=== PATIENT | male | born 1960 | race Caucasian/White ===

== ENCOUNTER 2017-04-08 13:13 | Inpatient (IN) | payer OTHER ==
[2017-04-08 14:22] VITALS: BMI 27.7
--- NOTE | 2017-04-08 15:28 | HP ---
Admission ROS [facility] Chief Complaint: I am here for rehab. Allergies/Adverse Reactions: Allergies Allergy/AdvReac Type Severity Reaction Status Date / Time No Known Allergies Allergy Verified 04/08/17 14:27 History of Present Illness: pt is a 56yr old male with a history of cocaine dependence seeking detox for treatment. pt has a h/o dvt to B/L leg and left pulmonary clot. pt is currently on coumadin 10mg qhs last INR as per pt is 2.2 Exam Limitations: No Limitations - Ebola screening Have you traveled outside of the country in the last 21 days: No (N) Have you had contact with anyone from an Ebola affected area: No Have you been sick,other than usual withdrawal symptoms: No Do you have a fever: No - Review of Systems Constitutional: No Symptoms Reported EENT: reports: No Symptoms Reported Respiratory: reports: No Symptoms reported Cardiac: reports: No Symptoms Reported GI: reports: No Symptoms Reported : reports: No Symptoms Reported Musculoskeletal: reports: No Symptoms Reported Integumentary: reports: No Symptoms Reported Neuro: reports: No Symptoms reported Endocrine: reports: No Symptoms Reported Hematology: reports: No Symptoms Reported Psychiatric: reports: Judgement Intact, Mood/Affect Appropiate, Orientated x3, Agitated, Anxious Other Systems: Reviewed and Negative Patient History - Patient Medical History Hx Anemia: No Hx Asthma: Yes Hx Chronic Obstructive Pulmonary Disease (COPD): No Hx Cancer: No Hx Cardiac Disorders: No Hx Congestive Heart Failure: No Hx Hypertension: No Hx Hypercholesterolemia: No Hx Pacemaker: No HX Cerebrovascular Accident: No Hx Seizures: No Hx Dementia: No Hx Diabetes: No Hx Gastrointestinal Disorders: No Hx Liver Disease: No Hx Genitourinary Disorders: No Hx Sexually Transmitted Disorders: No Hx Renal Disease (ESRD): No Hx Thyroid Disease: No Hx Human Immunodeficiency Virus (HIV): No (negative) Hx Hepatitis C: No (negative) Hx Depression: Yes Hx Suicide Attempt: No (denies) Hx Bipolar Disorder: Yes Hx Schizophrenia: No - Patient Surgical History Past Surgical History: No Hx Neurologic Surgery: No Hx Cataract Extraction: No Hx Cardiac Surgery: No Hx Lung Surgery: No Hx Breast Surgery: No Hx Breast Biopsy: No Hx Abdominal Surgery: No Hx Appendectomy: No Hx Cholecystectomy: No Hx Genitourinary Surgery: No Hx Section: No Hx Orthopedic Surgery: No Anesthesia Reaction: No - PPD History Previous Implant?: Yes Documented Results: Negative w/o proof Implanted On Prior [facility] Admission?: No PPD to be Administered?: Yes - Reproductive History Patient is a Female of Child Bearing Age (11 -55 yrs old): No - Smoking Cessation Smoking history: Current every day smoker Have you smoked in the past 12 months: Yes Aproximately how many cigarettes per day: 5 Hx Chewing Tobacco Use: No Initiated information on smoking cessation: Yes 'Breaking Loose' booklet given: 04/08/17 - Substance & Tx. History Hx Alcohol Use: No Hx Substance Use: Yes Substance Use Type: Cocaine Hx Substance Use Treatment: No - Substances Abused Cocaine Route: Inhalation Frequency: Daily Amount used: $200 Age of first use: 17 Date of Last Use: 04/04/17 Family Disease History - Family Disease History Family History: Denies Admission Physical Exam S - Vital Signs Vital Signs: Vital Signs - 24 hr 04/08/17 14:16 Temperature 96.1 F L Pulse Rate 82 Respiratory 16 Rate Blood Pressure 127/91 - Physical General Appearance: Yes: Appropriately Dressed, Mild Distress HEENTM: Yes: Hearing grossly Normal, Normal Voice Respiratory: Yes: Lungs Clear, Normal Breath Sounds, No Respiratory Distress Neck: Yes: No masses,lesions,Nodules Breast: Yes: Within Normal Limits Cardiology: Yes: Regular Rhythm, Regular Rate, S1, S2 Abdominal: Yes: Normal Bowel Sounds, Non Tender, Soft Genitourinary: Yes: Within Normal Limits Back: Yes: Normal Inspection Musculoskeletal: Yes: full range of Motion Extremities: Yes: Other (chronic right lower leg swelling) Neurological: Yes: Fully Oriented, Alert, Normal Response Integumentary: Yes: Normal Color Lymphatic: Yes: Within Normal Limits - Diagnostic (1) Cocaine dependence Current Visit: Yes Status: Chronic Qualifiers: Substance use status: uncomplicated Qualified Code(s): F14.20 - Cocaine dependence, uncomplicated (2) Nicotine dependence Current Visit: Yes Status: Chronic Qualifiers: Nicotine product type: cigarettes Substance use status: uncomplicated Qualified Code(s): F17.210 - Nicotine dependence, cigarettes, uncomplicated (3) DVT (deep venous thrombosis) Current Visit: Yes Status: Acute Qualifiers: DVT location: lower extremity Chronicity: chronic Laterality: bilateral (4) Asthma Current Visit: Yes Status: Chronic Qualifiers: Asthma severity: mild Asthma complication type: uncomplicated (5) H/O pulmonary thrombosis Current Visit: No Status: Chronic Cleared for Admission S - Detox or Rehab S Level of Care: Medically Managed S Breath Alcohol Content Breath Alcohol Content: 0 Urine Drug Screen - Results Drug Screen Negative: No Urine Drug Screen Results: [facility]patient Re[facility] Admission - Initial Determination Are CD services needed?: Yes Not in need of hospitalization: Yes - Rehab Admission Criteria Comorbidities: Yes Patient is meeting Inpatient Rehab admission criteria:: Yes
[2017-04-08] MEDS ORDERED: NICOTINE POLACRILEX 4 MG GUM BUC PRN (15:30)
[2017-04-08] MEDS ORDERED: MAGNESIUM CITRATE 300 ML BOTTLE PO PRN (15:30)
[2017-04-08] MEDS ORDERED: MAG HYDROX/AL HYDROX/SIMETH 30 ML UNIT-DOSE CUP PO PRN (15:30)
[2017-04-08] MEDS ORDERED: LOPERAMIDE HCL 2 MG CAPSULE PO PRN (15:30)
[2017-04-08] MEDS ORDERED: MAGNESIUM HYDROX 2400MG/30ML ORAL SUSPENSION 30 ML CUP PO PRN (15:30)
[2017-04-08] MEDS ORDERED: hydrOXYzine PAMOATE 50 MG CAPSULE (FP) PO PRN (15:30)
[2017-04-08] MEDS ORDERED: MENTHOL/PHENOL 1 EACH UD MM PRN (15:30)
[2017-04-08] MEDS ORDERED: P-EPHED 60MG/TRIPROLIDI 2.5MG TABLET PO PRN (15:30)
[2017-04-08] MEDS ORDERED: guaiFENesin/D-METHORPHAN HB 10 ML UNIT-DOSE CUPS PO PRN (15:30)
[2017-04-08] MEDS ORDERED: ALBUTEROL SO4 18 GM HFA INHALER IH PRN (15:31)
[2017-04-08 16:42] LABS: ALBUMIN 3.9 g/dl (3.4-5.0); ALK PHOS 75 U/L (45-117); ANION GAP 6 (8-16); BILIRUBIN,TOTAL 0.3 mg/dL (0.2-1.0); BLOOD UREA NITROGEN 14 mg/dL (7-18); CALCIUM 8.5 mg/dL (8.5-10.1); CHLORIDE 107 mmol/L (98-107); CO2 27 mmol/L (21-32); CREATININE 1.2 mg/dL (0.7-1.3); GLUCOSE,RANDOM 81 mg/dL (74-106); POTASSIUM 4.1 mmol/L (3.5-5.1); SGOT/AST 9 U/L (15-37); SGPT/ALT 15 U/L (12-78); SODIUM 140 mmol/L (136-145); TOT PROT 7.4 g/dl (6.4-8.2)
[2017-04-08 16:45] LABS: HEMATOCRIT 40.5 % (35.4-49); MCH 28.5 pg (25.7-33.7); MCHC 32.2 g/dl (32.0-35.9); MEAN CELL VOLUME 88.7 fl (80-96); MEAN PLT VOLUME 8.9 fl (7.5-11.1); PLATELET COUNT 252 K/MM3 (134-434); RBC 4.57 M/mm3 (4.00-5.60); RDW 16.5 % (11.9-15.9); WHITE BLOOD COUNT 8.7 K/mm3 (4.0-10.0)
[2017-04-08 17:10] LABS: INR 1.81 (0.82-1.09); PROTHROMBIN TIME (PATIENT) 20.4 SEC (9.98-11.88)
[2017-04-08] MEDS ORDERED: WARFARIN NA 10 MG TABLET (FP) PO SCH (18:00)
[2017-04-08] MEDS: WARFARIN NA 5 MG TABLET (UD) PO SCH (19:08)
[2017-04-08] MEDS: BUDESONIDE/FORMETEROL FUMARATE 160/4.5 mcg INHALER IH SCH (21:41)
[2017-04-08] MEDS ORDERED: MIRTAZAPINE 15 MG TABLET (FP) PO SCH (22:00)
[2017-04-08] MEDS: THIAMINE HCL 100 MG TABLET (FP) PO SCH (22:11)
[2017-04-08] MEDS: OLANZapine 10 MG TABLET PO SCH (22:11)
[2017-04-08 23:33] LABS: URINE APPEARANCE CLEAR; URINE BILIRUBIN NEGATIVE (NEGATIVE); URINE BLOOD NEGATIVE (NEGATIVE); URINE COLOR LTYELLOW; URINE GLUCOSE (UA) NEGATIVE (NEGATIVE); URINE KETONE NEGATIVE (NEGATIVE); URINE LEUK ESTERASE NEGATIVE (NEGATIVE); URINE NITRITE NEGATIVE (NEGATIVE); URINE PROTEIN NEGATIVE (NEGATIVE); URINE UROBILINOGEN NEGATIVE mg/dL (0.2-1.0)
--- NOTE | 2017-04-09 07:09 | HP ---
Psychiatrist Admission - Data Date of interview: 04/09/17 Admission source: [place] Identifying data: This is the first [facility] admission for this 56 years old single male, unemployed on SSI, domiciled Medical History: Significant for bronchial asthma and history of dvt both legs and pulmonary emboli, Smokes 5 cigarettes daily Psychiatric History: Reports being diagnosed with Bipolar/Depression as a child and has had 3-4 previous psychiatric admissions all in [facility]. Reports seeing a psychiatrist at a clinic in [place], [place] and he is prescribed Gabapentin 400 mg po daily, Remeron 45mg po HS and Zyprexa 20 mg po HS. Claims that he is only compliant with Zyprexa and stopped taking the others. Requests that they be discontinued since he does not want to take them and has been refusing to take them. Denies history of suicidal attempt. At present, reports feeling and sleeping well Physical/Sexual Abuse/Trauma History: Denies histoy of verbal, physical or sexual abuse as well as DV relationship Additional Comment: Reports history of multiple arrests including 5 felony convictions. Reports being on parole for life Vital Signs: Vital Signs - 24 hr 04/08/17 04/09/17 04/09/17 14:16 00:30 03:30 Temperature 96.1 F L Pulse Rate 82 Respiratory 16 18 20 Rate Blood Pressure 127/91 04/09/17 06:51 Temperature 98.3 F Pulse Rate 69 Respiratory 18 Rate Blood Pressure 110/66 Allergies/Adverse Reactions: Allergies Allergy/AdvReac Type Severity Reaction Status Date / Time No Known Allergies Allergy Verified 04/08/17 14:27 Date of last physical exam: 04/08/17 Concur with the findings of this exam: Yes - Substance Abuse/Tx History Hx Alcohol Use: No Hx Substance Use: Yes Substance Use Type: Cocaine (Started using cocaine at age 17, consumes $$200 worth daily. Last used on 04/04/17) Hx Substance Use Treatment: No Mental Status Exam - Mental Status Exam Alert and Oriented to: Time, Place, Person Cognitive Function: Fair Patient Appearance: Well Groomed Mood: Hopeful, Euthymic Patient Behavior: Cooperative Speech Pattern: Clear Voice Loudness: Normal Thought Process: Intact, Goal Oriented Thought Disorder: Not Present Hallucinations: Denies Suicidal Ideation: Denies Homicidal Ideation: Denies Insight/Judgement: Fair Sleep: Well Muscle strength/Tone: Normal Gait/Station: Normal Psychiatric Findings - Problem List ([place] 1, 2,3) (1) Cocaine dependence Current Visit: Yes Status: Chronic Qualifiers: Substance use status: uncomplicated Qualified Code(s): F14.20 - Cocaine dependence, uncomplicated (2) Nicotine dependence Current Visit: Yes Status: Chronic Qualifiers: Nicotine product type: cigarettes Substance use status: uncomplicated Qualified Code(s): F17.210 - Nicotine dependence, cigarettes, uncomplicated (3) Bipolar II disorder Current Visit: Yes Status: Acute (4) Asthma Current Visit: Yes Status: Chronic Qualifiers: Asthma severity: mild Asthma complication type: uncomplicated (5) DVT (deep venous thrombosis) Current Visit: Yes Status: Acute Qualifiers: DVT location: lower extremity Chronicity: chronic Laterality: bilateral (6) H/O pulmonary thrombosis Current Visit: No Status: Chronic - Initial Treatment Plan Initial Treatment Plan: 1) Continue Olanzapine 20 mg po HS as ordered by Dr Bolton. 2) Discontinue Gabapenti and Remeron. 3) Monitor progress
[2017-04-09] MEDS ORDERED: GABAPENTIN 400 MG CAPSULE (FP) PO SCH (10:00)
[2017-04-09] MEDS: NICOTINE 21 MG/24 HOURS TOPICAL PATCH TD SCH (10:47)
[2017-04-09] MEDS: PRENATAL VITAMINS W/ FOLIC ACID TABLET (FP) PO SCH (10:47)
[2017-04-09] MEDS: BUDESONIDE/FORMETEROL FUMARATE 160/4.5 mcg INHALER IH SCH ×2 (10:51→21:51)
--- NOTE | 2017-04-09 13:59 | EKG ---
Test Reason : Blood Pressure : / mmHG Vent. Rate : 071 BPM Atrial Rate : 071 BPM P-R Int : 156 ms QRS Dur : 086 ms QT Int : 396 ms P-R-T Axes : 061 -24 055 degrees QTc Int : 430 ms NORMAL SINUS RHYTHM POSSIBLE LEFT ATRIAL ENLARGEMENT NO PREVIOUS ECGS AVAILABLE Confirmed by NINOSKA COULTER MD ([id number]) on 04/09/2017 1:59:08 PM Referred By: Confirmed By:NINOSKA COULTER MD
[2017-04-09] MEDS: WARFARIN NA 5 MG TABLET (UD) PO SCH (17:03)
[2017-04-09] MEDS: THIAMINE HCL 100 MG TABLET (FP) PO SCH (21:52)
[2017-04-09] MEDS: OLANZapine 10 MG TABLET PO SCH (21:52)
[2017-04-09] MEDS ORDERED: PT OWN MED DRAWER 7, Y5N ONE (22:14)
[2017-04-10] MEDS: NICOTINE 21 MG/24 HOURS TOPICAL PATCH TD SCH (10:46)
[2017-04-10] MEDS: PRENATAL VITAMINS W/ FOLIC ACID TABLET (FP) PO SCH (10:46)
[2017-04-10] MEDS: BUDESONIDE/FORMETEROL FUMARATE 160/4.5 mcg INHALER IH SCH ×2 (10:46→21:09)
[2017-04-10 10:57] LABS: INR 2.18 (0.82-1.09); PROTHROMBIN TIME (PATIENT) 24.6 SEC (9.98-11.88)
[2017-04-10] MEDS: WARFARIN NA 5 MG TABLET (UD) PO SCH (17:13)
[2017-04-10] MEDS: THIAMINE HCL 100 MG TABLET (FP) PO SCH (21:09)
[2017-04-10] MEDS: OLANZapine 10 MG TABLET PO SCH (21:09)
[2017-04-11] MEDS: PRENATAL VITAMINS W/ FOLIC ACID TABLET (FP) PO SCH (10:11)
[2017-04-11] MEDS: NICOTINE 21 MG/24 HOURS TOPICAL PATCH TD SCH (10:11)
[2017-04-11] MEDS: BUDESONIDE/FORMETEROL FUMARATE 160/4.5 mcg INHALER IH SCH ×2 (10:13→21:52)
[2017-04-11] MEDS: WARFARIN NA 5 MG TABLET (UD) PO SCH (17:09)
[2017-04-11] MEDS: OLANZapine 10 MG TABLET PO SCH (21:52)
[2017-04-11] MEDS: THIAMINE HCL 100 MG TABLET (FP) PO SCH (21:52)
[2017-04-12] MEDS: BUDESONIDE/FORMETEROL FUMARATE 160/4.5 mcg INHALER IH SCH ×2 (11:06→22:25)
[2017-04-12] MEDS: PRENATAL VITAMINS W/ FOLIC ACID TABLET (FP) PO SCH (11:06)
[2017-04-12] MEDS: NICOTINE 21 MG/24 HOURS TOPICAL PATCH TD SCH (11:06)
[2017-04-12] MEDS: WARFARIN NA 5 MG TABLET (UD) PO SCH (18:17)
[2017-04-12] MEDS: OLANZapine 10 MG TABLET PO SCH (21:34)
[2017-04-12] MEDS: THIAMINE HCL 100 MG TABLET (FP) PO SCH (21:34)
[2017-04-13] MEDS: NICOTINE 21 MG/24 HOURS TOPICAL PATCH TD SCH (10:46)
[2017-04-13] MEDS: PRENATAL VITAMINS W/ FOLIC ACID TABLET (FP) PO SCH (10:46)
[2017-04-13] MEDS: BUDESONIDE/FORMETEROL FUMARATE 160/4.5 mcg INHALER IH SCH ×2 (10:46→21:13)
[2017-04-13] MEDS: THIAMINE HCL 100 MG TABLET (FP) PO SCH (21:12)
[2017-04-13] MEDS: OLANZapine 10 MG TABLET PO SCH (21:12)
[2017-04-14] MEDS: NICOTINE 21 MG/24 HOURS TOPICAL PATCH TD SCH (10:40)
[2017-04-14] MEDS: BUDESONIDE/FORMETEROL FUMARATE 160/4.5 mcg INHALER IH SCH ×2 (10:41→21:11)
[2017-04-14] MEDS: PRENATAL VITAMINS W/ FOLIC ACID TABLET (FP) PO SCH (10:41)
[2017-04-14] MEDS: THIAMINE HCL 100 MG TABLET (FP) PO SCH (21:12)
[2017-04-14] MEDS: OLANZapine 10 MG TABLET PO SCH (21:12)
[2017-04-15] MEDS: PRENATAL VITAMINS W/ FOLIC ACID TABLET (FP) PO SCH (10:40)
[2017-04-15] MEDS: BUDESONIDE/FORMETEROL FUMARATE 160/4.5 mcg INHALER IH SCH ×2 (10:40→21:13)
[2017-04-15] MEDS: NICOTINE 21 MG/24 HOURS TOPICAL PATCH TD SCH (10:40)
[2017-04-15] MEDS: OLANZapine 10 MG TABLET PO SCH (21:13)
[2017-04-15] MEDS: THIAMINE HCL 100 MG TABLET (FP) PO SCH (21:13)
[2017-04-16 10:14] LABS: INR 1.1 (0.82-1.09); PROTHROMBIN TIME (PATIENT) 12.4 SEC (9.98-11.88)
[2017-04-16] MEDS: NICOTINE 21 MG/24 HOURS TOPICAL PATCH TD SCH (10:18)
[2017-04-16] MEDS: PRENATAL VITAMINS W/ FOLIC ACID TABLET (FP) PO SCH (10:18)
[2017-04-16] MEDS: BUDESONIDE/FORMETEROL FUMARATE 160/4.5 mcg INHALER IH SCH ×2 (10:18→21:05)
--- NOTE | 2017-04-16 14:49 | PN ---
[place] Progress Note (SOAP) Subjective: [facility] was following 7 months ago had PE and b/l DVT, goal level is 2.5-3.0 10mg of warfarin every night Plan: restart warfarin 10mg daily check INR until therapeutic
[2017-04-16] MEDS: WARFARIN NA 5 MG TABLET (UD) PO SCH (17:03)
[2017-04-16] MEDS: THIAMINE HCL 100 MG TABLET (FP) PO SCH (21:05)
[2017-04-16] MEDS: OLANZapine 10 MG TABLET PO SCH (21:05)
[2017-04-17] MEDS: BUDESONIDE/FORMETEROL FUMARATE 160/4.5 mcg INHALER IH SCH ×2 (10:14→21:35)
[2017-04-17] MEDS: NICOTINE 21 MG/24 HOURS TOPICAL PATCH TD SCH (10:14)
[2017-04-17] MEDS: PRENATAL VITAMINS W/ FOLIC ACID TABLET (FP) PO SCH (10:14)
[2017-04-17 10:21] LABS: INR 1.08 (0.82-1.09); PROTHROMBIN TIME (PATIENT) 12.2 SEC (9.98-11.88)
[2017-04-17] MEDS: WARFARIN NA 5 MG TABLET (UD) PO SCH (17:42)
[2017-04-17] MEDS: OLANZapine 10 MG TABLET PO SCH (21:35)
[2017-04-17] MEDS: THIAMINE HCL 100 MG TABLET (FP) PO SCH (21:35)
[2017-04-18] MEDS: NICOTINE 21 MG/24 HOURS TOPICAL PATCH TD SCH (10:11)
[2017-04-18] MEDS: PRENATAL VITAMINS W/ FOLIC ACID TABLET (FP) PO SCH (10:11)
[2017-04-18] MEDS: BUDESONIDE/FORMETEROL FUMARATE 160/4.5 mcg INHALER IH SCH ×2 (10:11→21:07)
[2017-04-18 10:21] LABS: INR 1.1 (0.82-1.09); PROTHROMBIN TIME (PATIENT) 12.4 SEC (9.98-11.88)
[2017-04-18] MEDS: WARFARIN NA 5 MG TABLET (UD) PO SCH (17:52)
[2017-04-18] MEDS: ACETAMINOPHEN 325 MG TABLET (FP) PO PRN (17:54)
[2017-04-18] MEDS ORDERED: PT OWN MED DRAWER 7, Y5N ONE (20:11)
[2017-04-18] MEDS: OLANZapine 10 MG TABLET PO SCH (21:06)
[2017-04-18] MEDS: THIAMINE HCL 100 MG TABLET (FP) PO SCH (21:06)
[2017-04-19] MEDS: PRENATAL VITAMINS W/ FOLIC ACID TABLET (FP) PO SCH (10:29)
[2017-04-19] MEDS: BUDESONIDE/FORMETEROL FUMARATE 160/4.5 mcg INHALER IH SCH ×2 (10:29→21:08)
[2017-04-19] MEDS: NICOTINE 21 MG/24 HOURS TOPICAL PATCH TD SCH (10:29)
[2017-04-19 12:12] LABS: INR 1.19 (0.82-1.09); PROTHROMBIN TIME (PATIENT) 13.4 SEC (9.98-11.88)
[2017-04-19] MEDS: WARFARIN NA 5 MG TABLET (UD) PO SCH (17:43)
[2017-04-19] MEDS: OLANZapine 10 MG TABLET PO SCH (21:09)
[2017-04-19] MEDS: THIAMINE HCL 100 MG TABLET (FP) PO SCH (21:09)
[2017-04-19] MEDS: ACETAMINOPHEN 325 MG TABLET (FP) PO PRN (21:10)
[2017-04-20] MEDS: NICOTINE 21 MG/24 HOURS TOPICAL PATCH TD SCH (09:52)
[2017-04-20] MEDS: PRENATAL VITAMINS W/ FOLIC ACID TABLET (FP) PO SCH (09:52)
[2017-04-20] MEDS: BUDESONIDE/FORMETEROL FUMARATE 160/4.5 mcg INHALER IH SCH ×2 (09:52→21:03)
[2017-04-20] MEDS: WARFARIN NA 5 MG TABLET (UD) PO SCH (17:06)
[2017-04-20] MEDS: THIAMINE HCL 100 MG TABLET (FP) PO SCH (21:03)
[2017-04-20] MEDS: OLANZapine 10 MG TABLET PO SCH (21:03)
--- NOTE | 2017-04-21 09:10 | PN ---
Psychiatric Progress Note Vital Signs: Vital Signs Period Temp Pulse Resp BP Sys/West Pulse Ox Last 24 Hr 98.1 F 88 18-20 117/81 Date of Session: 04/21/17 Chief Complaint:: Discharge Note HPI: Patient addressing Cocaine Dependence comorbid with Nicotine Dependence and Bipolar II Disorder ROS: Asthma and history of DVT both legs and Pulmonary emboli were medically managed Current Medications: Active Medications Generic Name Dose Route Start Last Admin Trade Name Freq PRN Reason Stop Dose Admin Acetaminophen 650 mg 04/08/17 15:30 04/19/17 21:10 Tylenol - PO 650 mg Q4H PRN Administration PAIN Al Hydroxide/Mg Hydroxide 30 ml 04/08/17 15:30 Mylanta Oral Suspension - PO Q6H PRN DYSPEPSIA Albuterol Sulfate 2 puff 04/08/17 15:31 Ventolin Hfa Inhaler - IH Q4H PRN ASTHMA Budesonide/Formoterol Fumarate 1 puff 04/08/17 22:00 04/20/17 21:03 Symbicort 160/4.5mcg - IH 1 puff BID NINOSKA Administration Eucalyptus/Menthol/Phenol/Sorbitol 1 each 04/08/17 15:30 Cepastat Lozenge - MM Q4H PRN SORE THROAT Guaifenesin 10 ml 04/08/17 15:30 Robitussin Dm - PO Q6H PRN COUGH Hydroxyzine Pamoate 50 mg 04/08/17 15:30 Vistaril - PO Q4H PRN AGITATION Loperamide HCl 4 mg 04/08/17 15:30 Imodium - PO Q6H PRN DIARRHEA Magnesium Citrate 300 ml 04/08/17 15:30 Citroma - PO Q48H PRN CONSTIPATION Magnesium Hydroxide 30 ml 04/08/17 15:30 Milk Of Magnesia - PO DAILY PRN CONSTIPATION Nicotine 21 mg 04/09/17 10:00 04/20/17 09:52 Nicoderm Patch - TD Not Given DAILY NINOSKA Nicotine Polacrilex 4 mg 04/08/17 15:30 04/12/17 21:34 Nicorette Gum - BUC 4 mg Q2H PRN Administration NICOTINE REPLACEMENT RX Olanzapine 20 mg 04/08/17 22:00 04/20/17 21:03 Zyprexa - PO 20 mg HS NINOSKA Administration Multivit/Folic Acid/Iron 1 tab 04/09/17 10:00 04/20/17 09:52 Vitamins ([facility]) - PO Not Given DAILY NINOSKA Pseudoephedrine/Triprolidine 1 combo 04/08/17 15:30 Actifed - PO TID PRN NASAL CONGESTION Thiamine HCl 100 mg 04/08/17 22:00 04/20/17 21:03 Vitamin B1 - PO 100 mg HS NINOSKA Administration Warfarin Sodium 10 mg 04/16/17 18:00 04/20/17 17:06 Coumadin - PO 10 mg DAILY@1800 NINOSKA Administration Current Side Effect: No Lab tests ordered: Yes Lab tests reviewed: Yes Provider note:: Patient will complete this program on 04/22/17. He has met his treatment goals and will continue to address his issues by attending NA. He responded well to Zyprexa 20 mg po HS. Script for 30 days supply of medication will electronically be transmitted to [facility] at [address] [place] [address]. He is stable for discharge on 04/22/17 Total face to face time:: 35 Mental Status Exam - Mental Status Exam Alert and Oriented to: Time, Place, Person Cognitive Function: Fair Patient Appearance: Well Groomed Mood: Hopeful, Euthymic Affect: Appropriate Patient Behavior: Cooperative Speech Pattern: Clear Voice Loudness: Normal Thought Process: Intact Thought Disorder: Not Present Hallucinations: Denies Suicidal Ideation: Denies Homicidal Ideation: Denies Insight/Judgement: Fair Sleep: Well Appetite: Good Muscle strength/Tone: Normal Gait/Station: Normal Psychiatric Treatment Plan - Problem List (1) Cocaine dependence Current Visit: Yes Qualifiers: Substance use status: uncomplicated Qualified Code(s): F14.20 - Cocaine dependence, uncomplicated (2) Nicotine dependence Current Visit: Yes Qualifiers: Nicotine product type: cigarettes Substance use status: uncomplicated Qualified Code(s): F17.210 - Nicotine dependence, cigarettes, uncomplicated (3) Bipolar II disorder Current Visit: Yes (4) Asthma Current Visit: Yes Qualifiers: Asthma severity: mild Asthma complication type: uncomplicated (5) DVT (deep venous thrombosis) Current Visit: Yes Qualifiers: DVT location: lower extremity Chronicity: chronic Laterality: bilateral (6) H/O pulmonary thrombosis Current Visit: No Initial treatment plan: Patient will be discharged tomorrow and will be attending NA
[2017-04-21] MEDS: NICOTINE 21 MG/24 HOURS TOPICAL PATCH TD SCH (10:20)
[2017-04-21] MEDS: BUDESONIDE/FORMETEROL FUMARATE 160/4.5 mcg INHALER IH SCH ×2 (10:21→21:15)
[2017-04-21] MEDS: PRENATAL VITAMINS W/ FOLIC ACID TABLET (FP) PO SCH (10:21)
[2017-04-21 12:42] LABS: INR 1.6 (0.82-1.09); PROTHROMBIN TIME (PATIENT) 18.1 SEC (9.98-11.88)
--- NOTE | 2017-04-21 15:03 | PN ---
[facility] Progress Note (SOAP) Subjective: Patient seen for c/o burning sensation in feet. As per patient, he has been on coumadin started 7 months ago for DVT in right leg and he has been experiencing burning sensation in his right leg for couple months. He is on neurontin 400mg PO daily as well. Patient denies any sob or chest pain. He reports following up with his PCP every Wednesday and that his next appointment is this Wednesday at 11: 30am. Patient aware that he will receive rx for coumadin 10mg for tomorrow night upon discharge tomorrow and he will follow up on Wednesday with his PCP for blood work and coumadin Rx. Patient instructed to address his c/o burning sensation to his PCP for further management. Objective: 04/21/17 15:03 Last Vital Signs Temp Pulse Resp BP Pulse Ox 98.1 F 88 18 117/81 04/21/17 06:48 04/21/17 06:48 04/21/17 06:48 04/21/17 06:48 Laboratory Tests 04/08/17 04/08/17 04/08/17 15:15 15:15 15:15 WBC 8.7 RBC 4.57 Hgb 13.0 Hct 40.5 MCV 88.7 MCH 28.5 MCHC 32.2 RDW 16.5 H Plt Count 252 MPV 8.9 PT with INR INR Sodium 140 Potassium 4.1 Chloride 107 Carbon Dioxide 27 Anion Gap 6 L BUN 14 Creatinine 1.2 Creat Clearance w eGFR > 60 Random Glucose 81 Calcium 8.5 Total Bilirubin 0.3 AST 9 L ALT 15 Alkaline Phosphatase 75 Total Protein 7.4 Albumin 3.9 Urine Color Urine Appearance Urine pH Ur Specific [place] Urine Protein Urine Glucose (UA) Urine Ketones Urine Blood Urine Nitrite Urine Bilirubin Urine Urobilinogen Ur Leukocyte Esterase RPR Titer Nonreactive 04/08/17 04/08/17 04/10/17 15:15 20:13 07:50 WBC RBC Hgb Hct MCV MCH MCHC RDW Plt Count MPV PT with INR 20.40 H 24.60 H INR 1.81 H 2.18 H Sodium Potassium Chloride Carbon Dioxide Anion Gap BUN Creatinine Creat Clearance w eGFR Random Glucose Calcium Total Bilirubin AST ALT Alkaline Phosphatase Total Protein Albumin Urine Color Ltyellow Urine Appearance Clear Urine pH 6.0 Ur Specific [place] 1.011 Urine Protein Negative Urine Glucose (UA) Negative Urine Ketones Negative Urine Blood Negative Urine Nitrite Negative Urine Bilirubin Negative Urine Urobilinogen Negative Ur Leukocyte Esterase Negative RPR Titer 04/16/17 04/17/17 04/18/17 07:30 09:10 07:45 WBC RBC Hgb Hct MCV MCH MCHC RDW Plt Count MPV PT with INR 12.40 H 12.20 H 12.40 H INR 1.10 D 1.08 1.10 Sodium Potassium Chloride Carbon Dioxide Anion Gap BUN Creatinine Creat Clearance w eGFR Random Glucose Calcium Total Bilirubin AST ALT Alkaline Phosphatase Total Protein Albumin Urine Color Urine Appearance Urine pH Ur Specific [place] Urine Protein Urine Glucose (UA) Urine Ketones Urine Blood Urine Nitrite Urine Bilirubin Urine Urobilinogen Ur Leukocyte Esterase RPR Titer 04/19/17 04/21/17 08:40 10:55 WBC RBC Hgb Hct MCV MCH MCHC RDW Plt Count MPV PT with INR 13.40 H 18.10 H INR 1.19 H 1.60 H D Sodium Potassium Chloride Carbon Dioxide Anion Gap BUN Creatinine Creat Clearance w eGFR Random Glucose Calcium Total Bilirubin AST ALT Alkaline Phosphatase Total Protein Albumin Urine Color Urine Appearance Urine pH Ur Specific [place] Urine Protein Urine Glucose (UA) Urine Ketones Urine Blood Urine Nitrite Urine Bilirubin Urine Urobilinogen Ur Leukocyte Esterase RPR Titer Labs noted PE: Right leg/foot moderate swelling with 1+ pitting edema, left leg mild swelling Assessment: 04/21/17 15:04 Patient seen for burning sensation to right leg; has dvt right leg and presently on coumadin 10mg Plan: Neuropathy right leg: continue neurontin, f/u with PCP on Wednesday for further management DVT right leg: INR subtherapuetic, PT/INR stat, coumadin 12.5mg tonight, Rx ordered for coumadin 10mg PO x 1 dose tomorrow evening, follow up with PCP on Wednesday as scheduled for blood draw and Rx for coumadin. Monitor for bleeding/ bruising. Elevate legs to decrease swelling.
[2017-04-21] MEDS ORDERED: WARFARIN NA 10 MG TABLET (FP) PO ONE (18:00)
[2017-04-21] MEDS ORDERED: WARFARIN NA 10 MG, WARFARIN NA 2.5 MG PO ONE (18:00)
[2017-04-21] MEDS ORDERED: WARFARIN NA 5 MG TABLET (UD) PO SCH (18:00)
[2017-04-21] MEDS: OLANZapine 10 MG TABLET PO SCH (21:16)
[2017-04-21] MEDS: THIAMINE HCL 100 MG TABLET (FP) PO SCH (21:16)
[2017-04-22 06:57] VITALS: BP 113/76; PULSE 81; TEMP 98.2
[2017-04-22] MEDS ORDERED: PT OWN MED DRAWER 7, Y5N ONE (09:20)
[2017-04-22] MEDS ORDERED: WARFARIN NA 5 MG TABLET (UD) PO SCH (18:00)
== END 2017-04-22 09:45 | disposition home or self-care (01) | DRG 772 ==
LOC: YASAS 13:13 → Y3W 15:02
PROVIDERS: ADMIT Psychiatry & Neurology Psychiatry; ATTEND Psychiatry & Neurology Psychiatry
PROC: HZ42ZZZ Group Counseling for Substance Abuse Treatment, Cognitive-Behavioral (ICD-10-PCS; principal; 2017-04-08)
DX: F14.20 Cocaine dependence, uncomplicated (principal); F17.210 Nicotine dependence, cigarettes, uncomplicated; F31.81 Bipolar II disorder; J45.909 Unspecified asthma, uncomplicated; G62.9 Polyneuropathy, unspecified; I82.403 Acute embolism and thrombosis of unspecified deep veins of lower extremity, bilateral; Z79.01 Long term (current) use of anticoagulants; Z86.711 Personal history of pulmonary embolism
CPT/HCPCS: 36415; 80053; 81003; 85027; 85610; 86593; 93005; 93010